=== PATIENT | female | born 1975 | race Caucasian/White ===

== ENCOUNTER 2017-11-27 02:05 | Emergency (ER) | payer BC, OTHER ==
[~2017-11-27] VITALS: Ht 170.2 cm; Wt 67.6 kg
--- NOTE | ~2017-11-27 | EKG ---
[place] [address] [facility] 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 : 1975 Requested By: Karie Cordova Order Number: [id number] MD: Spencer Antunez Measurements Intervals Mona Rate: 95 P: 48 [place]: 107 QRS: 25 QRSD: 87 T: 22 QT: 369 QTc: 464 Interpretive Statements Sinus rhythm Multiple ventricular premature complexes Short [place] interval RSR' in V1 or V2, right VCD Compared to ECG 10/17/2012 02:23:35 Ventricular premature complex(es) now present Electronically Signed On 11-29-2017 7:49:41 CDT by Spencer Antunez [email or web address] <ELECTRONICALLY SIGNED> By: Spencer Antunez MD, [facility] 11/29/17 [id number] [id number] Spencer Antunez MD, [facility] /EPI
[~2017-11-27 02:05] MED LIST: DARVOCET-N 1001 EACH PO; FIRST-PROGESTER25 MG VG; FLEXERIL PO; FLONASE 0.05%50 MCG; MULTI VITAMIN1 EACH PO; NORCO 5-325 TA1 EACH PO; PROTONIX40 MG PO; SEROQUEL 25 MG25 M1 PO; ZYRTEC
[2017-11-27] MEDS ORDERED: ESTRACE1 TUBE (02:13)
[2017-11-27 02:34] LABS: ABSOLUTE NEUTROPHILS 5.3 thou/uL (1.4-8.2); BASOPHILS 0.7 % (0.0-2.0); HEMATOCRIT 42.5 % (37.0-47.0); HEMOGLOBIN 14.6 gm/dL (12.0-15.0); LYMPHOCYTES 15.7 % (24.0-44.0); MCH 29.5 pg (26.0-34.0); MCHC 34.3 g/dL (28.0-37.0); MCV 86.1 fL (80.0-100.0); MONOCYTES 6.7 % (1.0-8.0); PLATELET COUNT 179 thou/uL (150-400); POLYS 74.9 % (36.0-66.0); RBC 4.93 mil/uL (4.20-5.00); RDW 12.5 % (10.5-14.5)
[2017-11-27 02:41] LABS: ANION GAP 11 mmol/L (7-16); BUN 15 mg/dL (7-18); CALCIUM 9.2 mg/dL (8.5-10.1); CHLORIDE 101 mmol/L (98-107); CO2 28 mmol/L (21-32); CREATININE 0.9 mg/dL (0.6-1.0); GLUCOSE 108 mg/dL (74-106); POTASSIUM 3.5 mmol/L (3.5-5.1); SODIUM 140 mmol/L (136-145)
[2017-11-27 02:50] LABS: TROPONIN-I < 0.04 ng/mL (<0.06)
[2017-11-27] MEDS ORDERED: ZOFRAN ODT4 MG PO (04:20)
[2017-11-27 04:35] VITALS: BP 109/78
== END 2017-11-27 04:50 | disposition home or self-care (01) ==
LOC: ER 02:05
PROVIDERS: Emergency Medicine
DX: R00.0 Tachycardia, unspecified (principal); R07.9 Chest pain, unspecified; R11.0 Nausea; R06.00 Dyspnea, unspecified; Z88.8 Allergy status to other drugs, medicaments and biological substances